=== PATIENT | male | born 1925 | race Caucasian/White ===

== ENCOUNTER → 2016-05-07 | Outpatient (CLI) | payer MEDICARE, BC ==
[~2016-05-07] MED LIST: ALFU1TAB10 PO; ALTA1.256 PO; ASPI81TA82 PO; CARV6.25 PO; CIPR250T2 PO; FINA1TAB2 PO; MULTCAP13 PO; NITR0.4S SL; OMEG100037 PO; ZOCO40TA PO
[2016-05-07 10:27] LABS: BICARBONATE 27.7 MEQ/L (21.0-32.0); POTASSIUM 4.5 MEQ/L (3.5-5.1)
== END ==
LOC: CLAB 09:00
PROVIDERS: ATTEND Internal Medicine Interventional Cardiology
DX: E78.00 Pure hypercholesterolemia, unspecified (principal); I42.0 Dilated cardiomyopathy; R53.83 Other fatigue; I48.0 Paroxysmal atrial fibrillation
CPT/HCPCS: 36415; 80048